=== PATIENT | female | born 1960 | race Asian ===

== ENCOUNTER → 2021-08-25 | Outpatient (CLI) | payer BC ==
[~2021-08-25] MED LIST: BARIUM SULFATE 176 GM SUSP.RECON ONE; BARIUM SULFATE(VOLUMEN) 450 ML ORAL.SUSP ONE; EZ-HD SUSPENSION(BARIUM SULFATE 340GM) PO ONE
== END | disposition home or self-care (01) ==
LOC: RAD 08:59
PROVIDERS: ATTEND Internal Medicine Gastroenterology
DX: K21.9 Gastro-esophageal reflux disease without esophagitis (principal); K44.9 Diaphragmatic hernia without obstruction or gangrene; K22.89 Other specified disease of esophagus; R13.10 Dysphagia, unspecified
CPT/HCPCS: 74220

== ENCOUNTER → 2021-09-02 | Outpatient (CLI) | payer BC ==
[2021-09-02 08:06] LABS: BASOPHILS % 0.8 % (0.0-2.0); EOSINOPHILS % 2.7 % (0.0-5.0); HEMATOCRIT. 36.3 % (36.0-48.0); HEMOGLOBIN. 12.1 g/dL (12.0-16.0); MEAN CORPUSCULAR VOLUME 87.2 fL (81.0-99.0); MONOCYTES % 6.2 % (2.0-8.0); NEUTROPHILS % 63.3 % (40.0-76.0); PLATELET 423 x1000/uL (130-400); RED BLOOD CELL COUNT 4.16 mill/uL (4.2-5.4); RED CELL DISTRIBUTION WIDTH 13.4 % (11.6-14.6)
[2021-09-02 08:18] LABS: CHLORIDE 101 mEq/L (98-107)
[2021-09-02 08:19] LABS: CLARITY URINE CLEAR (CLEAR); COLOR URINE YELLOW (YELLOW); KETONES URINE NEGATIVE (NEGATIVE); LEUKOCYTE ESTERASE URINE NEGATIVE (NEGATIVE); NITRITE URINE NEGATIVE (NEGATIVE); OCCULT BLOOD URINE NEGATIVE (NEGATIVE); PH URINE 5.5 (4.5-8.0); PROTEIN URINE NEGATIVE (NEGATIVE); SPECIFIC GRAVITY URINE 1.016 (1.005-1.030); UROBILINOGEN URINE 0.2 E.U./dL (0.2-1.0)
[2021-09-02 08:33] LABS: AMYLASE 69 IU/L (25-115); GAMMA GLUTAMYL TRANSPEPTIDASE 36 IU/L (7-32); HDL CHOLESTEROL 53 mg/dL (40-59); LDL CHOLESTEROL 75 mg/dL (5-100); T4 FREE 1.35 ng/dL (0.76-1.46)
[2021-09-02 09:02] LABS: VITAMIN B12 SERUM 1145 pg/mL (211-911)
== END | disposition home or self-care (01) ==
LOC: LAB 06:13
PROVIDERS: ATTEND Family Medicine
DX: I10 Essential (primary) hypertension (principal); E78.5 Hyperlipidemia, unspecified; E11.65 Type 2 diabetes mellitus with hyperglycemia
CPT/HCPCS: 36415; 80053; 80061; 81003; 82150; 82607; 82652; 82977; 83036; 84439; 84443; 84481; 84550; 85025; 86376

== ENCOUNTER → 2022-09-03 | Outpatient (CLI) | payer BC ==
[2022-09-03 08:31] LABS: CHLORIDE 102 mEq/L (98-107)
[2022-09-03 09:00] LABS: AMYLASE 82 IU/L (25-115); HDL CHOLESTEROL 55 mg/dL (40-59); LDL CHOLESTEROL 72 mg/dL (5-100); T4 FREE 1.25 ng/dL (0.76-1.46)
[2022-09-03 11:52] LABS: CLARITY URINE CLEAR (CLEAR); COLOR URINE YELLOW (YELLOW); KETONES URINE TRACE (NEGATIVE); LEUKOCYTE ESTERASE URINE 2+ (NEGATIVE); NITRITE URINE NEGATIVE (NEGATIVE); OCCULT BLOOD URINE NEGATIVE (NEGATIVE); PH URINE 5.5 (4.5-8.0); PROTEIN URINE NEGATIVE (NEGATIVE); SPECIFIC GRAVITY URINE 1.021 (1.005-1.030); UROBILINOGEN URINE 0.2 E.U./dL (0.2-1.0)
[2022-09-06 07:07] LABS: *CREATININE RANDOM URINE 193.6 mg/dL (Not Estab.); MICROALBUMIN RANDOM URINE 12.4 ug/mL (Not Estab.)
== END | disposition home or self-care (01) ==
LOC: LAB 06:05
PROVIDERS: ATTEND Anesthesiology
DX: I12.9 Hypertensive chronic kidney disease with stage 1 through stage 4 chronic kidney disease, or unspecified chronic kidney disease (principal); N18.2 Chronic kidney disease, stage 2 (mild); R94.6 Abnormal results of thyroid function studies; E78.2 Mixed hyperlipidemia; E11.9 Type 2 diabetes mellitus without complications; K76.9 Liver disease, unspecified; E03.9 Hypothyroidism, unspecified
CPT/HCPCS: 36415; 80053; 80061; 80076; 81003; 82043; 82150; 82306; 82570; 83036; 84439; 84443; 84481; 84550

== ENCOUNTER → 2022-09-17 | Outpatient (CLI) | payer BC ==
[2022-09-17 06:43] LABS: BASOPHILS % 0.8 % (0.0-2.0); EOSINOPHILS % 3.4 % (0.0-5.0); HEMATOCRIT. 36.3 % (36.0-48.0); HEMOGLOBIN. 12.2 g/dL (12.0-16.0); LYMPHOCYTES % 36.1 % (20.0-50.0); MEAN CORPUSCULAR HEMOGLOBIN 29.6 pg (28.0-32.0); MEAN CORPUSCULAR VOLUME 87.8 fL (81.0-99.0); MEAN PLATELET VOLUME 6.9 fl (7.4-10.4); MONOCYTES % 7.1 % (2.0-8.0); NEUTROPHILS % 52.6 % (40.0-76.0); PLATELET 429 x1000/uL (130-400); RED BLOOD CELL COUNT 4.13 mill/uL (4.2-5.4); RED CELL DISTRIBUTION WIDTH 13.8 % (11.6-14.6)
[2022-09-17 07:07] LABS: AMYLASE 99 IU/L (25-115); GAMMA GLUTAMYL TRANSPEPTIDASE 38 IU/L (7-32)
== END | disposition home or self-care (01) ==
LOC: LAB 06:20
PROVIDERS: ATTEND Internal Medicine Gastroenterology
DX: K57.30 Diverticulosis of large intestine without perforation or abscess without bleeding (principal)
CPT/HCPCS: 36415; 82150; 82977; 85025

== ENCOUNTER → 2022-09-21 | Outpatient (CLI) | payer BC | END | disposition home or self-care (01) | LOC: US 09:12 | PROVIDERS: ATTEND Internal Medicine Gastroenterology | DX: D73.4 Cyst of spleen (principal); N28.1 Cyst of kidney, acquired; K86.89 Other specified diseases of pancreas; K57.30 Diverticulosis of large intestine without perforation or abscess without bleeding | CPT/HCPCS: 76700 ==

== ENCOUNTER → 2022-09-24 | Outpatient (CLI) | payer BC ==
[2022-09-24 16:01] LABS: CHLORIDE 104 mEq/L (98-107)
[2022-09-24 16:14] LABS: AMYLASE 73 IU/L (25-115); GAMMA GLUTAMYL TRANSPEPTIDASE 25 IU/L (7-32)
== END | disposition home or self-care (01) ==
LOC: LAB 15:00
PROVIDERS: ATTEND Internal Medicine Gastroenterology
DX: K44.9 Diaphragmatic hernia without obstruction or gangrene (principal); K57.00 Diverticulitis of small intestine with perforation and abscess without bleeding; R10.9 Unspecified abdominal pain
CPT/HCPCS: 36415; 80053; 82150; 82977

== ENCOUNTER → 2022-10-29 | Outpatient (CLI) | payer BC ==
[2022-10-29 06:46] LABS: AMYLASE 82 IU/L (25-115)
== END | disposition home or self-care (01) ==
LOC: LAB 05:55
PROVIDERS: ATTEND Internal Medicine Gastroenterology
DX: K57.30 Diverticulosis of large intestine without perforation or abscess without bleeding (principal)
CPT/HCPCS: 36415; 82150; 83036

== ENCOUNTER → 2022-11-09 | Outpatient (CLI) | payer BC ==
[~2022-11-09] MED LIST changes: -BARIUM SULFATE 176 GM SUSP.RECON ONE; -BARIUM SULFATE(VOLUMEN) 450 ML ORAL.SUSP ONE; -EZ-HD SUSPENSION(BARIUM SULFATE 340GM) PO ONE; +GADOTERATE MEGLUMINE 5 MMOL/10 ML VIAL IV ONE
== END | disposition home or self-care (01) ==
LOC: MRI 10:39
PROVIDERS: ATTEND Internal Medicine Gastroenterology
DX: K44.9 Diaphragmatic hernia without obstruction or gangrene (principal); R16.0 Hepatomegaly, not elsewhere classified; N28.1 Cyst of kidney, acquired; K85.90 Acute pancreatitis without necrosis or infection, unspecified; R74.8 Abnormal levels of other serum enzymes
CPT/HCPCS: 74183; A9577

== ENCOUNTER → 2022-12-29 | Outpatient (CLI) | payer BC ==
[2022-12-29 07:04] LABS: INDEX HEMOLYSI 1 (1-3)
[2022-12-29 07:16] LABS: AMYLASE 76 IU/L (25-115)
== END | disposition home or self-care (01) ==
LOC: LAB 06:07
PROVIDERS: ATTEND Internal Medicine Gastroenterology
DX: I10 Essential (primary) hypertension (principal); K44.9 Diaphragmatic hernia without obstruction or gangrene; K29.70 Gastritis, unspecified, without bleeding
CPT/HCPCS: 36415; 82150; 83036; 86301